=== PATIENT | male | born 1970 | race Caucasian/White ===

== ENCOUNTER 2017-12-11 02:00 | Emergency (ER) | payer OTHER ==
[~2017-12-11] VITALS: Ht 182.9 cm; Wt 158.8 kg
[2017-12-11] MEDS ORDERED: LOSA25 PO (02:16)
[2017-12-11] MEDS ORDERED: AMLO5 PO (02:16)
[2017-12-11] MEDS ORDERED: BENZ100A PO (03:39)
== END 2017-12-11 03:55 | disposition home or self-care (01) ==
LOC: ER 02:00
DX: J06.9 Acute upper respiratory infection, unspecified (principal); I10 Essential (primary) hypertension; Z79.899 Other long term (current) drug therapy
CPT/HCPCS: 71046; 96372; 99283; J1885

== ENCOUNTER 2020-05-17 16:38 | Inpatient (IN) | payer OTHER ==
[~2020-05-17] VITALS: Ht 180.3 cm; Wt 171.3 kg
[~2020-05-17 16:38] MED LIST: AMLO5 PO; BENZ100A PO; CEPH500 PO; IBUP800 PO; LOSA25 PO; Percocet 10-321 EACH PO
[2020-05-17] MEDS ORDERED: LOSARTAN-HCTZ1 EACH PO (17:25)
[2020-05-17] MEDS ORDERED: LOSA50 PO (17:28)
[2020-05-17] MEDS ORDERED: HYDCHL25 PO (17:29)
[2020-05-17 18:23] LABS: BASOPHILS ABSOLUTE AUTO 0.08 K/mm3 (0.00-0.23); BASOPHILS PERCENT AUTO 1 % (0-2); EOSINOPHILS ABSOLUTE AUTO 0.23 K/mm3 (0.00-0.68); EOSINOPHILS PERCENT AUTO 2 % (0-6); Hematocrit 48.8 % (37.0-53.0); Hemoglobin 15.6 g/dL (13.5-17.5); IMMATURE GRAN ABSOLUTE AUTO 0.03 K/mm3 (0.00-0.10); IMMATURE GRAN PERCENT AUTO 0 % (0-1); LYMPHOCYTES ABSOLUTE AUTO 2.45 K/mm3 (0.84-5.20); LYMPHOCYTES PERCENT AUTO 25 % (21-46); MONOCYTES ABSOLUTE AUTO 0.93 K/mm3 (0.16-1.47); MONOCYTES PERCENT AUTO 10 % (4-13); Mean Corpuscular HGB 27.5 pg (26.0-34.0); Mean Corpuscular Volume 86 fL (80-100); Mean Platelet Volume 10.1 fL (9.1-12.4); NEUTROPHILS ABSOLUTE AUTO 6.11 K/mm3 (1.96-9.15); NEUTROPHILS PERCENT AUTO 62 % (41-73); Platelet Count 286 K/mm3 (150-400); RDW Coefficient Variation 15.5 % (11.7-14.2); RDW Standard Deviation 48.4 fL (35.1-46.3); Red Blood Cell Count 5.67 M/mm3 (4.30-5.90); White Blood Cell Count 9.83 K/mm3 (4.00-11.30)
[2020-05-17 19:07] LABS: Anion Gap 10 mmol/L (6-16); Blood Urea Nitrogen 15 mg/dL (8-24); Bun/Creatinine Ratio 17.2 (12.0-20.0); CO2, Blood 27 mmol/L (21-32); Calcium, Blood 8.9 mg/dL (8.5-10.1); Chloride, Blood 103 mmol/L (98-108); Creatinine, Blood 0.87 mg/dL (0.60-1.20); Glomerular Filtration Rate >60 (60-); Glucose, Blood 88 mg/dL (70-99); Potassium, Blood 3.7 mmol/L (3.5-5.5); Sodium, Blood 140 mmol/L (136-145)
--- NOTE | 2020-05-17 19:36 | NUR ---
174 RECEIVED PT TO 305 VIA W/C DIRECT ADMIT. PT SENT HERE FROM [facility] FOR C/O CP. PT DENIED CP WHEN ADMITTED, BUT REPORTED THAT IT WAS A LITTLE STRONGER INDIGESTION AND HEART BURN THAN NORMAL AND WANTED TO GET CHECKED OUT. DR CARMEN NOTIFIED REGARDING LACK OF ORDERS AND GAVE INSTRUCTIONS TO CALL DR VILLATORO FOR ADMITTING ORDERS. DR VILLATORO NOTIFIED AND REPORTED THAT HE HAD SENT ORDERS OVER WITH PT'S AND WOULD BE HERE SHORTLY TO SEE PT WELL. OBTAINED ORDERS FROM AND MORE ORDERS PLACED BY DR VILLATORO. DR VILLATORO TO TO SEE PT; ADDITIONAL ORDERS RECEIVED. PT PLACED ON TELE AND TO BE STARTED ON HEPARIN DRIP FOR CP PROTOCOL; W/O BOLUS. LOVENOX TO BE HELD WHILE PT ON HEPARIN DRIP. PT TO BE NPO AFTER MN, UNTIL SEEN BY CARDIOLOGY. AM DOSE OF METOPROLOL TO BE HELD WELL, UNTIL SEEN BY CARDIOLOGY. PT LYING HF IN BED EATING DINNER WHEN SEEN BY DR VILLATORO. NO C/O CP TO PRESENT. REPORT GIVEN TO ONCOMING RN.
[2020-05-17 20:05] LABS: International Normalized Ratio 1.05; Prothrombin Time Results 11.2 Sec (9.7-11.5)
[2020-05-18 04:43] LABS: Hematocrit 45.6 % (37.0-53.0); Hemoglobin 14.3 g/dL (13.5-17.5); Mean Corpuscular HGB 27.2 pg (26.0-34.0); Mean Corpuscular HGB Conc 31.4 g/dL (31.5-36.5); Mean Corpuscular Volume 87 fL (80-100); Mean Platelet Volume 10.2 fL (9.1-12.4); Platelet Count 272 K/mm3 (150-400); RDW Coefficient Variation 15.5 % (11.7-14.2); RDW Standard Deviation 49.1 fL (35.1-46.3); Red Blood Cell Count 5.25 M/mm3 (4.30-5.90); White Blood Cell Count 9.11 K/mm3 (4.00-11.30)
--- NOTE | 2020-05-18 04:50 | NUR ---
ROUTE DELIVERER SUMMARY ALERT AND ORIENTED. DENIES CHEST PAIN OR SOB. VSS. NO ACUTE DISTRESS NOTED. HEPARIN CURRENTLY INFUSING. APPEARED TO SLEEP MOST OF SHIFT. BED IN LOWEST POSITION WITH CALL LIGHT IN REACH. WILL CONTINUE TO MONITOR AND REPORT TO ONCOMING RN.
[2020-05-18 05:10] LABS: Anion Gap 7 mmol/L (6-16); Blood Urea Nitrogen 16 mg/dL (8-24); Bun/Creatinine Ratio 17.8 (12.0-20.0); CO2, Blood 29 mmol/L (21-32); Calcium, Blood 8.6 mg/dL (8.5-10.1); Chloride, Blood 102 mmol/L (98-108); Glomerular Filtration Rate >60 (60-); Glucose, Blood 101 mg/dL (70-99); Potassium, Blood 3.5 mmol/L (3.5-5.5); Sodium, Blood 138 mmol/L (136-145)
--- NOTE | 2020-05-18 10:00 | NUR ---
DISCHARGE NOTE PT DISCHARGED AT 0952 AND WALKED WITH HIS . PT RECEIVED VERBAL AND WRITTEN INSTRUCTIONS/HANDOUTS ON HIS MEDICATIONS OR ANY FOLLOW UP. IV DC'D, PT TOLERATED WELL. PT DENIED CP/SOB/PAIN UPON DISCHARGE. DR. CHILD STATED THAT PT CAN TAKE IBUPROFEN OTC PRN, INSTRUCTED THE PT- PT VERBALIZED UNDERSTANDING.
== END 2020-05-18 09:56 | disposition home or self-care (01) | DRG 313 ==
LOC: MEDS 16:38 → ENPENDDIS 05-18 08:17 → MEDS 05-18 09:56
PROVIDERS: ADMIT Internal Medicine
DX: R07.9 Chest pain, unspecified (principal); Z68.43 Body mass index [BMI] 50.0-59.9, adult; E66.01 Morbid (severe) obesity due to excess calories; I16.0 Hypertensive urgency; I10 Essential (primary) hypertension; E78.5 Hyperlipidemia, unspecified
CPT/HCPCS: 36415; 71046; 80048; 83036; 83718; 84484; 85025; 85027; 85610; 85730; C8929; J1644; Q9957

== ENCOUNTER → 2020-08-09 | Outpatient (CLI) | payer OTHER ==
[~2020-08-09] MED LIST changes: +ATOR40TA PO; +Aspir 8181 MG PO; +HYDCHL25 PO; +LOSA50 PO; +LOSARTAN-HCTZ1 EACH PO; +METOPROLOL SUCC25 MG PO; +PANT40 PO
[2020-08-09 08:26] LABS: BASOPHILS ABSOLUTE AUTO 0.08 K/mm3 (0.00-0.23); BASOPHILS PERCENT AUTO 1 % (0-2); EOSINOPHILS ABSOLUTE AUTO 0.84 K/mm3 (0.00-0.68); EOSINOPHILS PERCENT AUTO 9 % (0-6); Hematocrit 46.7 % (37.0-53.0); Hemoglobin 14.8 g/dL (13.5-17.5); IMMATURE GRAN ABSOLUTE AUTO 0.03 K/mm3 (0.00-0.10); IMMATURE GRAN PERCENT AUTO 0 % (0-1); LYMPHOCYTES ABSOLUTE AUTO 2.12 K/mm3 (0.84-5.20); LYMPHOCYTES PERCENT AUTO 22 % (21-46); MONOCYTES ABSOLUTE AUTO 0.95 K/mm3 (0.16-1.47); MONOCYTES PERCENT AUTO 10 % (4-13); Mean Corpuscular HGB 27.7 pg (26.0-34.0); Mean Corpuscular HGB Conc 31.7 g/dL (31.5-36.5); Mean Corpuscular Volume 87 fL (80-100); Mean Platelet Volume 10.7 fL (9.1-12.4); NEUTROPHILS ABSOLUTE AUTO 5.68 K/mm3 (1.96-9.15); NEUTROPHILS PERCENT AUTO 59 % (41-73); Platelet Count 241 K/mm3 (150-400); RDW Coefficient Variation 15.5 % (11.7-14.2); RDW Standard Deviation 48.8 fL (35.1-46.3); Red Blood Cell Count 5.35 M/mm3 (4.30-5.90)
[2020-08-09 09:07] LABS: Anion Gap 8 mmol/L (6-16); Blood Urea Nitrogen 18 mg/dL (8-24); Bun/Creatinine Ratio 17.5 (12.0-20.0); CO2, Blood 29 mmol/L (21-32); Calcium, Blood 8.8 mg/dL (8.5-10.1); Chloride, Blood 102 mmol/L (98-108); Creatinine, Blood 1.03 mg/dL (0.60-1.20); Glomerular Filtration Rate >60 (60-); Glucose, Blood 104 mg/dL (70-99); Potassium, Blood 3.9 mmol/L (3.5-5.5); Sodium, Blood 139 mmol/L (136-145)
[2020-08-09 10:00] LABS: International Normalized Ratio 1.07; Prothrombin Time Results 11.4 Sec (9.7-11.5)
== END | disposition home or self-care (01) ==
LOC: LAB EV 07:38
PROVIDERS: Internal Medicine Cardiovascular Disease
DX: Z01.812 Encounter for preprocedural laboratory examination (principal)
CPT/HCPCS: 36415; 80048; 85025; 85610

== ENCOUNTER 2020-08-10 07:41 | Day surgery (SDC) | payer OTHER ==
[~2020-08-10] VITALS: Ht 180.3 cm; Wt 178.0 kg
[~2020-08-10 07:41] MED LIST changes: -ATOR40TA PO; -METOPROLOL SUCC25 MG PO
[2020-08-10] MEDS ORDERED: ATOR40TA PO (07:55)
[2020-08-10] MEDS ORDERED: METOPROLOL SUCC25 MG PO (07:56)
--- NOTE | 2020-08-10 10:30 | NUR ---
BROUGHT BACK TO RECOVERY ROOM VIA RECLINER, RIGHT WRIST WITH TR BAND ON, SITE SOFT NON TENDER WITH NO BLEEDING NOTED. AOX4. TOLERATES PO FLUIDS WITH NO ISSUES. DENIES CP OR SOB, WILL CONTINUE TO MONITOR.
--- NOTE | 2020-08-10 11:34 | NUR ---
TR BAND DEFLATION STARTED ON RIGHT WRIST, ARM BOARD ON FOR SUPPORT. PT AOX4. DENIES CP OR SOB. VSS. WILL CONTINUE TO MONITOR.
--- NOTE | 2020-08-10 12:00 | NUR ---
TR BAND REMOVED FROM RIGHT WRIST, RED CLOTH DOT DRESSING APPLIED. SITE SOFT NON TENDER WITH NO ACTIVE BLEEDING, OOZING, OR PAIN. ARM BOARD ON FOR SUPPORT. DENIES NEED FOR SLING. GETS DRESSED WITH NO NEEDED ASSISTANCE, AMBULATES WITH STEADY GAIT. UNMEASURED VOID. CALLED ON PHONE TO NOTIFY OF PICK REMOVER TIME. PT VERBALIZED UNDERSTANDING OF D/C INSTRUCTIONS. PAPERWORK PROVIDED IN FOLDER, ENCOURAGED TO FOLLOW UP WITH PROVIDER SCHEDULED. NO ACUTE DISTRESS NOTED AT TIME OF DISCHARGE.
== END 2020-08-10 12:50 | disposition home or self-care (01) ==
LOC: MHTC 07:41
PROC: B205YZZ Plain Radiography of Left Heart using Other Contrast (ICD-10-PCS; principal; 2020-08-10)
PROC: 4A023N7 Measurement of Cardiac Sampling and Pressure, Left Heart, Percutaneous Approach (ICD-10-PCS; principal; 2020-08-10)
PROC: B201YZZ Plain Radiography of Multiple Coronary Arteries using Other Contrast (ICD-10-PCS; principal; 2020-08-10)
DX: I25.118 Atherosclerotic heart disease of native coronary artery with other forms of angina pectoris (principal); I10 Essential (primary) hypertension; E66.9 Obesity, unspecified; E78.5 Hyperlipidemia, unspecified; Z87.891 Personal history of nicotine dependence; G47.33 Obstructive sleep apnea (adult) (pediatric); Z79.899 Other long term (current) drug therapy; Z79.82 Long term (current) use of aspirin; Z68.43 Body mass index [BMI] 50.0-59.9, adult
CPT/HCPCS: 76937; 93454; 99152; 99153; C1769; C1894; J1644; J2250; J3010; J7030; J7050; Q9967

== ENCOUNTER 2021-05-01 19:23 | Emergency (ER) | payer OTHER ==
[~2021-05-01] VITALS: Ht 182.9 cm; Wt 182.8 kg
[~2021-05-01 19:23] MED LIST changes: +ATOR40TA PO; +METOPROLOL SUCC25 MG PO
[2021-05-01 19:55] LABS: BASOPHILS ABSOLUTE AUTO 0.01 K/mm3 (0.00-0.23); BASOPHILS PERCENT AUTO 0 % (0-2); EOSINOPHILS ABSOLUTE AUTO 0.01 K/mm3 (0.00-0.68); EOSINOPHILS PERCENT AUTO 0 % (0-6); Hematocrit 44.5 % (37.0-53.0); Hemoglobin 14.1 g/dL (13.5-17.5); IMMATURE GRAN ABSOLUTE AUTO 0.01 K/mm3 (0.00-0.10); IMMATURE GRAN PERCENT AUTO 0 % (0-1); LYMPHOCYTES ABSOLUTE AUTO 1.02 K/mm3 (0.84-5.20); LYMPHOCYTES PERCENT AUTO 22 % (21-46); MONOCYTES PERCENT AUTO 13 % (4-13); Mean Corpuscular HGB 26.1 pg (26.0-34.0); Mean Corpuscular HGB Conc 31.7 g/dL (31.5-36.5); Mean Corpuscular Volume 82 fL (80-100); Mean Platelet Volume 9.5 fL (9.1-12.4); NEUTROPHILS ABSOLUTE AUTO 3.09 K/mm3 (1.96-9.15); NEUTROPHILS PERCENT AUTO 65 % (41-73); Platelet Count 161 K/mm3 (150-400); RDW Coefficient Variation 16.3 % (11.7-14.2); RDW Standard Deviation 48.3 fL (35.1-46.3); White Blood Cell Count 4.74 K/mm3 (4.00-11.30)
[2021-05-01 20:18] LABS: Alanine Aminotransfer (ALT/SGP 116 U/L (12-78); Albumin, Blood 3.4 g/dL (3.4-5.0); Albumin/Globulin Ratio 0.8 (0.8-1.8); Alk Phos 68 U/L (50-136); Anion Gap 6 mmol/L (6-16); Aspartate Aminotrans (AST/SGOT 92 U/L (12-37); Bilirubin, Total 0.6 mg/dL (0.1-1.0); Blood Urea Nitrogen 11 mg/dL (8-24); Bun/Creatinine Ratio 11.1 (12.0-20.0); CO2, Blood 25 mmol/L (21-32); Calcium, Blood 8.1 mg/dL (8.5-10.1); Chloride, Blood 100 mmol/L (98-108); Creatinine, Blood 0.99 mg/dL (0.60-1.20); Globulin, Blood 4.2 g/dL (2.2-4.0); Glomerular Filtration Rate >60 (60-); Glucose, Blood 92 mg/dL (70-99); Potassium, Blood 3.6 mmol/L (3.5-5.5); Sodium, Blood 131 mmol/L (136-145); Total Protein, Blood 7.6 g/dL (6.4-8.2); Troponin I <0.015 ng/mL (0.000-0.040)
[2021-05-01] MEDS ORDERED: BUPROPION XL150 M1 (23:52)
== END 2021-05-02 02:00 | disposition home or self-care (01) ==
LOC: ER 19:23
PROVIDERS: Physician Assistant
DX: U07.1 COVID-19 (principal); B34.9 Viral infection, unspecified; I10 Essential (primary) hypertension; Z79.899 Other long term (current) drug therapy; Z79.82 Long term (current) use of aspirin; R06.00 Dyspnea, unspecified; R53.83 Other fatigue
CPT/HCPCS: 71045; 80048; 80053; 84443; 84484; 85025; 93005; 93010; 99285-25; M0243; Q0243

== ENCOUNTER 2021-12-06 07:41 | Day surgery (SDC) | payer OTHER ==
[~2021-12-06] VITALS: Ht 182.9 cm; Wt 168.5 kg
[~2021-12-06 07:41] MED LIST changes: +BUPROPION XL150 M1; +JARDIANCE25 MG PO; +METFORMIN HCL500 M1 PO
--- NOTE | 2021-12-06 08:40 | NUR ---
Ambulatory in Day Surgery History, Chart, Medications and Allergies reviewed before start of procedure.Patient confirms NPO status and agrees with scheduled surgery. Patient states colon prep results clear.Lungs clear T/O to Auscultation. Patient States Post-Procedure ride home has been arranged WITH
--- NOTE | 2021-12-06 09:05 | NUR ---
12/06/21 0905 Carlos Barraza See Anesthesia record DR LITTLE.
--- NOTE | 2021-12-06 10:32 | NUR ---
WRITTEN AND VERBAL D/C INSTRUCTIONS GIVEN TO PATIENT AND WITH STATED UNDERSTANDING.
== END 2021-12-06 10:48 | disposition home or self-care (01) ==
LOC: ORSCMMR 07:41 → ORD 10:00 → ORSCMMR 10:00
PROVIDERS: Internal Medicine Gastroenterology
PROC: 0DBK8ZX Excision of Ascending Colon, Via Natural or Artificial Opening Endoscopic, Diagnostic (ICD-10-PCS; principal; 2021-12-06 09:00)
PROC: 0DBN8ZX Excision of Sigmoid Colon, Via Natural or Artificial Opening Endoscopic, Diagnostic (ICD-10-PCS; principal; 2021-12-06 09:00)
DX: Z12.11 Encounter for screening for malignant neoplasm of colon (principal); D12.5 Benign neoplasm of sigmoid colon; D12.2 Benign neoplasm of ascending colon; K57.30 Diverticulosis of large intestine without perforation or abscess without bleeding; E66.01 Morbid (severe) obesity due to excess calories; Z68.43 Body mass index [BMI] 50.0-59.9, adult; I10 Essential (primary) hypertension; I25.10 Atherosclerotic heart disease of native coronary artery without angina pectoris; G47.33 Obstructive sleep apnea (adult) (pediatric); Z87.891 Personal history of nicotine dependence; E11.9 Type 2 diabetes mellitus without complications; E78.5 Hyperlipidemia, unspecified; F41.8 Other specified anxiety disorders; Z79.84 Long term (current) use of oral hypoglycemic drugs; Z79.82 Long term (current) use of aspirin; Z79.899 Other long term (current) drug therapy
CPT/HCPCS: 82947; 88305; J2001; J2704; J7120

== ENCOUNTER 2022-04-04 07:20 | Day surgery (SDC) | payer OTHER ==
[~2022-04-04] VITALS: Ht 182.9 cm; Wt 173.4 kg
[~2022-04-04 07:20] MED LIST changes: +TOPI25 PO; +TRAZ50 PO
--- NOTE | 2022-04-04 08:04 | NUR ---
Ambulatory in Day Surgery. History, Chart, Medications and Allergies reviewed before start of procedure.Lungs clear T/O to Auscultation. Patient confirms NPO status and agrees with scheduled surgery. Pre-Op teaching done. Pt verbalizes understanding. Patient States Post-Procedure ride home has been arranged.
--- NOTE | 2022-04-04 08:54 | NUR ---
04/04/22 0828 Theresa Garcia History, Chart, Medications and Allergies reviewed before start of procedure.MONITOR INTACT WITH CONTINUOUS PULSE OXIMETRY, 3 LEAD, AND INTERMITTENT BP.See Anesthesia record
--- NOTE | 2022-04-04 10:48 | NUR ---
Patient up to Ambulate independently. Gait steady. Discharge instructions reviewed with patient. Patient verbalizes understanding. Copy given to patient to take home. Patient States Post-Procedure ride home has been arranged WITH . Discharged via wheelchair to private car for ride home.
== END 2022-04-04 10:47 | disposition home or self-care (01) ==
LOC: ORSCMMR 07:20 → ORD 09:00 → ORSCMMR 10:47
PROVIDERS: Internal Medicine Gastroenterology
PROC: 0DBN8ZX Excision of Sigmoid Colon, Via Natural or Artificial Opening Endoscopic, Diagnostic (ICD-10-PCS; principal; 2022-04-04 09:00)
PROC: 0DBK8ZX Excision of Ascending Colon, Via Natural or Artificial Opening Endoscopic, Diagnostic (ICD-10-PCS; principal; 2022-04-04 09:00)
PROC: 0DBL8ZX Excision of Transverse Colon, Via Natural or Artificial Opening Endoscopic, Diagnostic (ICD-10-PCS; principal; 2022-04-04 09:00)
DX: Z12.11 Encounter for screening for malignant neoplasm of colon (principal); Z86.010 Personal history of colon polyps; D12.2 Benign neoplasm of ascending colon; D12.3 Benign neoplasm of transverse colon; D12.5 Benign neoplasm of sigmoid colon; G47.33 Obstructive sleep apnea (adult) (pediatric); K57.30 Diverticulosis of large intestine without perforation or abscess without bleeding; E66.01 Morbid (severe) obesity due to excess calories; Z68.43 Body mass index [BMI] 50.0-59.9, adult
CPT/HCPCS: 82947; 88305; J2704; J3010; J7120